=== PATIENT | female | born 1935 | race Caucasian/White ===

== ENCOUNTER 2018-01-05 13:48 | Emergency (ER) | payer OTHER, MEDICARE, BC ==
[~2018-01-05] VITALS: Ht 180.3 cm; Wt 84.5 kg
[~2018-01-05 13:48] MED LIST: BACT2OIN TOP; ESTRPOW15
[2018-01-05 14:11] VITALS: BP 147/87; PULSE 113; RESP 20; TEMP 98.4; O2SAT 94
--- NOTE | 2018-01-05 14:42 | RADRPT ---
EXAM DATE/TIME: 01/05/2018 14:24 [facility] COMPARISON: No previous studies available for comparison. INDICATIONS : Short of breath. Weakness. Mild tachycardia. MEDICAL HISTORY : None. SURGICAL HISTORY : None. ENCOUNTER: Initial ACUITY: 1 day PAIN SCORE: 0/10 LOCATION: Bilateral chest FINDINGS: The heart is enlarged. Mediastinal contours are within normal limits. There is chronic interstitial p rominence and COPD. The examination demonstrates eventration of the diaphragm which I believe is likely on the left versu s a mass posteriorly at the left lung base. I have no previous imaging for direct comparison. If no p revious imaging can be made available CT imaging may be warranted for more definitive characterizatio n. There degenerative changes within the spine but no destructive lesion. CONCLUSION: 1. There is a smoothly marginated, well-circumscribed masslike density posteriorly on the lateral exa m measuring 5.1 x 8.5 cm. Exact etiology of this is uncertain currently see above. 2. Chronic interstitial lung disease and COPD. Osvaldo Javier MD on January 05, 2018 at 14:38 Board Certified Radiologist. This report was verified electronically.
[2018-01-05 15:45] LABS: AUTOMATED NEUTROPHIL # 2.4 TH/MM3 (1.8-7.7); BASOPHIL % 0.8 % (0.0-2.0); EOSINOPHIL # 0.1 TH/MM3 (0-0.4); EOSINOPHIL % 2.3 % (0.0-4.0); HEMATOCRIT 48.1 % (35.0-46.0); HEMOGLOBIN 16.3 GM/DL (11.6-15.3); LYMPH % 37.9 % (9.0-44.0); LYMPHOCYTE # 1.8 TH/MM3 (1.0-4.8); MEAN CELL VOLUME 97.8 FL (80.0-100.0); MEAN CORPUSCULAR HEMOGLOBIN 33.1 PG (27.0-34.0); MEAN CORPUSCULAR HGB CONC 33.9 % (32.0-36.0); MEAN PLATELET VOLUME 9.1 FL (7.0-11.0); MONO % 7.7 % (0.0-8.0); MONOCYTE # 0.4 TH/MM3 (0-0.9); NEUT % 51.3 % (16.0-70.0); PLATELET COUNT 212 TH/MM3 (150-450); RED BLOOD COUNT 4.92 MIL/MM3 (4.00-5.30); RED CELL DISTRIBUTION WIDTH 14.2 % (11.6-17.2); WHITE BLOOD COUNT 4.6 TH/MM3 (4.0-11.0)
[2018-01-05 15:55] LABS: PROTHROMBIN TIME - PATIENT 10.5 SEC (9.8-11.6)
[2018-01-05 15:58] LABS: BILIRUBIN, URINE NEG (NEG); BLOOD, URINE NEG (NEG); GLUCOSE,URINE NEG (NEG); KETONE, URINE NEG (NEG); MUCUS URINE FEW /lpf (OCC); NITRITE,URINE NEG (NEG); PH, URINE 6.5 (5.0-8.5); SQUAMOUS EPITHELIAL CELL URINE 1 /hpf (0-5); URINE COLOR YELLOW (YELLW/STRAW); URINE LEUKOCYTE ESTERASE NEG (NEG)
--- NOTE | 2018-01-05 16:06 | RADRPT ---
EXAM DATE/TIME: 01/05/2018 15:50 [facility] COMPARISON: No previous studies available for comparison. INDICATIONS : Right sided head pain,dizzy RADIATION DOSE: 35.37 CTDIvol (mGy) MEDICAL HISTORY : Hypertension. SURGICAL HISTORY : None. ENCOUNTER: Initial ACUITY: 3 days PAIN SCALE: 3/10 LOCATION: Right cranial TECHNIQUE: Multiple contiguous axial images were obtained of the head. Using automated exposure control and adj ustment of the mA and/or kV according to patient size, radiation dose was kept as low as reasonably a chievable to obtain optimal diagnostic quality images. DICOM format image data is available electro nically for review and comparison. FINDINGS: There is mild atrophy and moderate patchy and confluent decreased attenuation of the bilateral subcor tical white matter, centrum semiovale and periventricular white matter most characteristic of chronic microvascular ischemic disease. No hemorrhage, mass or infarct. No fractures. CONCLUSION: Atrophy and moderate white matter disease. Rishabh Childs MD on January 05, 2018 at 16:03 Board Certified Radiologist. This report was verified electronically.
[2018-01-05 16:07] LABS: ALBUMIN 3.8 GM/DL (3.4-5.0); AST (GOT) 15 U/L (15-37); BICARBONATE 23.8 MEQ/L (21.0-32.0); BLOOD UREA NITROGEN 15 MG/DL (7-18); CALCIUM 9.4 MG/DL (8.5-10.1); CHLORIDE 104 MEQ/L (98-107); CREATININE 1.21 MG/DL (0.50-1.00); GLOMERULAR FILTRATION RATE 43 ML/MIN (>89); GLUCOSE,RANDOM 110 MG/DL (74-106); SODIUM (NA) 137 MEQ/L (136-145)
[2018-01-05 16:09] LABS: ALT (GPT) 23 U/L (10-53)
[2018-01-05 16:11] LABS: ALKALINE PHOSPHATASE 84 U/L (45-117); TOTAL BILIRUBIN ADULT 0.7 MG/DL (0.2-1.0); TOTAL PROTEIN 8.4 GM/DL (6.4-8.2)
[2018-01-05 16:28] VITALS: BP 147/92; PULSE 103; RESP 15; O2SAT 95
[2018-01-05] MEDS ORDERED: BUTA1CAP PO (16:56)
--- NOTE | 2018-01-05 16:57 | PD ---
HPI Chief Complaint: Headache Time Seen by Provider: 16:20 Travel History International Travel<30 days: No Contact w/Intl Traveler<30days: No Traveled to known affect area: No History of Present Illness HPI The patient is a 82-year-old who complains of headache. The patient notes a headache over the last several days, occasionally located over the frontal aspect of the face as well as the right frontal temporal area. The headache is intermittent, throbbing, and not associated with any nausea, vomiting, or photophobia. The patient denies any history of chronic headaches, previous intracranial hemorrhage, or previous intracranial tumors. The patient went to the CT clinic earlier today and they referred the patient to the emergency department for further evaluation. The patient denies any weakness or numbness of the upper or lower extremities. The patient denies any current nausea, vomiting, diarrhea, abdominal pain, paresthesias, or fever. PFSH Past Medical History Deep Vein Thrombosis: Yes (PE) Hypertension: Yes Influenza Vaccination: Yes Menopausal: Yes Past Surgical History Surgical History: No Previous Surgery Social History Alcohol Use: No Tobacco Use: Yes (1/2 PACK DAILY) Substance Use: No Allergies-Medications (Allergen,Severity, Reaction): Coded Allergies: No Known Allergies (Verified Adverse Reaction, Unknown, 01/05/18) Reported Meds & Prescriptions Reported Meds & Active Scripts Active No Active Prescriptions or Reported Medications Review of Systems Except as stated in HPI: all other systems reviewed are Neg General / Constitutional: No: Fever Eyes: No: Diploplia, Blurred Vision, Photophobia HENT: Positive: Headaches, Congestion, No: Lightheadedness, Neck Pain Cardiovascular: No: Chest Pain or Discomfort Respiratory: No: Shortness of Breath Gastrointestinal: No: Nausea, Vomiting, Abdominal Pain Musculoskeletal: No: Weakness Neurologic: Positive: Headache, No: Dizziness Physical Exam Narrative GENERAL: Awake, alert, pleasant 82-year-old in no acute respiratory distress. Divehi accent. SKIN: Focused skin assessment warm/dry. HEAD: Atraumatic. Normocephalic. EYES: Pupils equal and round. 4 mm bilateral. EOMs are intact. ENT: No nasal bleeding or discharge. Mucous membranes pink and moist. TMs are translucent and EACs are clear. NECK: Trachea midline. No JVD. No meningeal signs. CARDIOVASCULAR: Regular rate and rhythm. No murmur appreciated. RESPIRATORY: No accessory muscle use. Clear to auscultation. Breath sounds equal bilaterally. MUSCULOSKELETAL: No obvious deformities. No clubbing. No cyanosis. No edema. NEUROLOGICAL: Awake and alert. No obvious cranial nerve deficits. Motor grossly within normal limits. Normal speech. Nonfocal. PSYCHIATRIC: Appropriate mood and affect; insight and judgment normal. Data Data Last Documented VS Vital Signs Date Time Temp Pulse Resp B/P (MAP) Pulse Ox O2 Delivery O2 Flow Rate FiO2 01/05/18 16:28 103 15 147/92 (110) 95 Room Air 01/05/18 14:11 98.4 Orders Orders Complete Blood Count With Diff (01/05/18 14:14) Prothrombin Time / Inr (Pt) (01/05/18 14:14) Comprehensive Metabolic Panel (01/05/18 14:14) Act Partial Throm Time (Ptt) (01/05/18 14:14) Urinalysis - C+S If Indicated (01/05/18 14:14) Chest, Pa & Lat (01/05/18 ) Ct Brain W/O Iv Contrast(Rout) (01/05/18 ) Labs Laboratory Tests Test 01/05/18 15:10 White Blood Count 4.6 TH/MM3 Red Blood Count 4.92 MIL/MM3 Hemoglobin 16.3 GM/DL Hematocrit 48.1 % Mean Corpuscular Volume 97.8 FL Mean Corpuscular Hemoglobin 33.1 PG Mean Corpuscular Hemoglobin Concent 33.9 % Red Cell Distribution Width 14.2 % Platelet Count 212 TH/MM3 Mean Platelet Volume 9.1 FL Neutrophils (%) (Auto) 51.3 % Lymphocytes (%) (Auto) 37.9 % Monocytes (%) (Auto) 7.7 % Eosinophils (%) (Auto) 2.3 % Basophils (%) (Auto) 0.8 % Neutrophils # (Auto) 2.4 TH/MM3 Lymphocytes # (Auto) 1.8 TH/MM3 Monocytes # (Auto) 0.4 TH/MM3 Eosinophils # (Auto) 0.1 TH/MM3 Basophils # (Auto) 0.0 TH/MM3 CBC Comment DIFF FINAL Differential Comment Prothrombin Time 10.5 SEC Prothromb Time International Ratio 1.0 RATIO Activated Partial Thromboplast Time 25.7 SEC Urine Color YELLOW Urine Turbidity CLEAR Urine pH 6.5 Urine Specific [place] 1.016 Urine Protein TRACE mg/dL Urine Glucose (UA) NEG mg/dL Urine Ketones NEG mg/dL Urine Occult Blood NEG Urine Nitrite NEG Urine Bilirubin NEG Urine Urobilinogen 2.0 MG/DL Urine Leukocyte Esterase NEG Urine WBC 1 /hpf Urine Squamous Epithelial Cells 1 /hpf Urine Mucus FEW /lpf Microscopic Urinalysis Comment CULT NOT INDICATED Blood Urea Nitrogen 15 MG/DL Creatinine 1.21 MG/DL Random Glucose 110 MG/DL Total Protein 8.4 GM/DL Albumin 3.8 GM/DL Calcium Level 9.4 MG/DL Alkaline Phosphatase 84 U/L Aspartate Amino Transf (AST/SGOT) 15 U/L Alanine Aminotransferase (ALT/SGPT) 23 U/L Total Bilirubin 0.7 MG/DL Sodium Level 137 MEQ/L Potassium Level 4.2 MEQ/L Chloride Level 104 MEQ/L Carbon Dioxide Level 23.8 MEQ/L Anion Gap 9 MEQ/L Estimat Glomerular Filtration Rate 43 ML/MIN MDM Medical Decision Making Medical Screen Exam Complete: Yes Emergency Medical Condition: Yes Medical Record Reviewed: Yes Interpretation(s) Last Impressions Head CT 01/05/18 0000 Signed Impressions: Service Date/Time: Friday, January 05, 2018 15:50 - CONCLUSION: Atrophy and moderate white matter disease. Rishabh Childs MD Chest X-Ray 01/05/18 0000 Signed Impressions: Service Date/Time: Friday, January 05, 2018 14:24 - CONCLUSION: 1. There is a smoothly marginated, well-circumscribed masslike density posteriorly on the lateral exam measuring 5.1 x 8.5 cm. Exact etiology of this is uncertain currently see above. 2. Chronic interstitial lung disease and COPD. Osvaldo Javier MD Laboratory Tests Test 01/05/18 15:10 White Blood Count 4.6 TH/MM3 Red Blood Count 4.92 MIL/MM3 Hemoglobin 16.3 GM/DL Hematocrit 48.1 % Mean Corpuscular Volume 97.8 FL Mean Corpuscular Hemoglobin 33.1 PG Mean Corpuscular Hemoglobin Concent 33.9 % Red Cell Distribution Width 14.2 % Platelet Count 212 TH/MM3 Mean Platelet Volume 9.1 FL Neutrophils (%) (Auto) 51.3 % Lymphocytes (%) (Auto) 37.9 % Monocytes (%) (Auto) 7.7 % Eosinophils (%) (Auto) 2.3 % Basophils (%) (Auto) 0.8 % Neutrophils # (Auto) 2.4 TH/MM3 Lymphocytes # (Auto) 1.8 TH/MM3 Monocytes # (Auto) 0.4 TH/MM3 Eosinophils # (Auto) 0.1 TH/MM3 Basophils # (Auto) 0.0 TH/MM3 CBC Comment DIFF FINAL Differential Comment Prothrombin Time 10.5 SEC Prothromb Time International Ratio 1.0 RATIO Activated Partial Thromboplast Time 25.7 SEC Urine Color YELLOW Urine Turbidity CLEAR Urine pH 6.5 Urine Specific [place] 1.016 Urine Protein TRACE mg/dL Urine Glucose (UA) NEG mg/dL Urine Ketones NEG mg/dL Urine Occult Blood NEG Urine Nitrite NEG Urine Bilirubin NEG Urine Urobilinogen 2.0 MG/DL Urine Leukocyte Esterase NEG Urine WBC 1 /hpf Urine Squamous Epithelial Cells 1 /hpf Urine Mucus FEW /lpf Microscopic Urinalysis Comment CULT NOT INDICATED Blood Urea Nitrogen 15 MG/DL Creatinine 1.21 MG/DL Random Glucose 110 MG/DL Total Protein 8.4 GM/DL Albumin 3.8 GM/DL Calcium Level 9.4 MG/DL Alkaline Phosphatase 84 U/L Aspartate Amino Transf (AST/SGOT) 15 U/L Alanine Aminotransferase (ALT/SGPT) 23 U/L Total Bilirubin 0.7 MG/DL Sodium Level 137 MEQ/L Potassium Level 4.2 MEQ/L Chloride Level 104 MEQ/L Carbon Dioxide Level 23.8 MEQ/L Anion Gap 9 MEQ/L Estimat Glomerular Filtration Rate 43 ML/MIN Differential Diagnosis Differential diagnosis includes tension headache, migraine, intracranial tumor, sinusitis, temporal arteritis. Narrative Course Labs are drawn and sent in triage. CT the brain was obtained, was unremarkable. Chest x-ray was obtained, the patient appears to have an eventrated hernia versus smooth masslike area on the lateral aspect of the lungs. Outpatient follow-up is appropriate. Labs are unremarkable. The patient will be provided a copy of the CT results and lab results at discharge. Fioricet as needed. Follow-up with primary physician. Diagnosis Primary Impression: Cephalgia Qualified Codes: G44.209 - Tension-type headache, unspecified, not intractable Patient Instructions: General Instructions Additional Instructions: Please provide the patient a copy of the CT results, x-ray results, lab results at discharge. [facility] Return if symptoms worsen or progress. Med/Other Pt SpecificInfo: Prescription(s) given Scripts Yotyqrceod-Ukwfmmewbtlcx-Pajhjwyi (Fioricet) 50-300-40 Mg Cap 1 CAP PO Q4H Y for HEADACHE, #12 CAP 0 Refills Prov: Jose Romero MD 01/05/18 Disposition: 01 DISCHARGE HOME Condition: Stable Jose Romero MD Jan 05, 2018 16:56
== END 2018-01-05 17:17 | disposition home or self-care (01) ==
LOC: NEPC 13:48
DX: G44.209 Tension-type headache, unspecified, not intractable (principal); I10 Essential (primary) hypertension; J84.9 Interstitial pulmonary disease, unspecified; J44.9 Chronic obstructive pulmonary disease, unspecified; F17.210 Nicotine dependence, cigarettes, uncomplicated; Z86.711 Personal history of pulmonary embolism
CPT/HCPCS: 70450; 71046; 80053; 81001; 85025; 85610; 85730; 99285

== ENCOUNTER 2018-02-11 00:16 | Emergency (ER) | payer OTHER, MEDICARE, BC ==
[~2018-02-11] VITALS: Ht 177.8 cm; Wt 96.5 kg
[~2018-02-11 00:16] MED LIST changes: -BACT2OIN TOP; +BUTA1CAP PO; -ESTRPOW15
[2018-02-11 00:22] VITALS: BP 184/86; PULSE 97; RESP 18; TEMP 97.5; O2SAT 97
[2018-02-11 00:42] VITALS: BP 162/79; PULSE 113; RESP 20; O2SAT 96
[2018-02-11] MEDS ORDERED: SODIUM CHLORIDE 0.9% FLUSH 10 ML FLUSH IVF PRN (00:45)
--- NOTE | 2018-02-11 00:54 | PD ---
HPI Chief Complaint: Pain: Acute or Chronic Time Seen by Provider: 00:31 Travel History International Travel<30 days: No Contact w/Intl Traveler<30days: No Traveled to known affect area: No History of Present Illness HPI The patient is a 89-year-old female that complains of a stabbing pain in her left breast. She states it is not in her chest. The pain is not pleuritic and has been going on intermittently for the past 36 hours. She has not felt this pain in the last 2 hours. The pain is 0 now but when she feels the pain maximally it is only a 5/10. The patient does have a history of chronic atrial fibrillation. She does not take any anticoagulants for this except aspirin. Apparently, she got dizziness with anticoagulants and they took her off of these. The pain is transient when it comes on and lasts for less than a second 1 it comes on. PFSH Past Medical History Deep Vein Thrombosis: Yes (PE) Hypertension: Yes Menopausal: Yes Social History Alcohol Use: No Tobacco Use: Yes (1/2 PACK DAILY) Substance Use: No Allergies-Medications (Allergen,Severity, Reaction): Coded Allergies: No Known Allergies (Verified Adverse Reaction, Unknown, 01/05/18) Reported Meds & Prescriptions Reported Meds & Active Scripts Active Fioricet (Raqqrazfsd-Xdxwvetsysrsz-Ltlrmbfe) 50-300-40 Mg Cap 1 Cap PO Q4H PRN Review of Systems Except as stated in HPI: all other systems reviewed are Neg Physical Exam Narrative GENERAL: The patient is alert, oriented 3 in no apparent distress. Her vital signs show blood pressure 184/86 initially but repeat is 162/75. The patient is anxious. SKIN: Focused skin assessment warm/dry. HEAD: Atraumatic. Normocephalic. EYES: Pupils equal and round. No scleral icterus. No injection or drainage. ENT: No nasal bleeding or discharge. Mucous membranes pink and moist. NECK: Trachea midline. No JVD. CARDIOVASCULAR: Atrial fibrillation with borderline tachycardia. No murmur appreciated. RESPIRATORY: No accessory muscle use. Clear to auscultation. Breath sounds equal bilaterally. I cannot reproduce the patient's pain by pressing on the chest wall. GASTROINTESTINAL: Abdomen soft, non-tender, nondistended. Hepatic and splenic margins not palpable. MUSCULOSKELETAL: No obvious deformities. No clubbing. No cyanosis. No edema. NEUROLOGICAL: Awake and alert. No obvious cranial nerve deficits. Motor grossly within normal limits. Normal speech. PSYCHIATRIC: Appropriate mood and affect; insight and judgment normal. Breast exam: There is no tenderness, masses, lesions or rash on either breast. I cannot reproduce the patient's pain by pressing on her breast. Data Data Last Documented VS Vital Signs Date Time Temp Pulse Resp B/P (MAP) Pulse Ox O2 Delivery O2 Flow Rate FiO2 02/11/18 00:52 20 02/11/18 00:42 113 162/79 (106) 96 02/11/18 00:42 Room Air 02/11/18 00:22 97.5 Orders Orders Electrocardiogram (02/11/18 00:39) Complete Blood Count With Diff (02/11/18 00:39) Comprehensive Metabolic Panel (02/11/18 00:39) Magnesium (Mg) (02/11/18 00:39) Troponin I (02/11/18 00:39) Ecg Monitoring (02/11/18 00:39) Iv Access Insert/Monitor (02/11/18 00:39) Oximetry (02/11/18 00:39) Oxygen Administration (02/11/18 00:39) Sodium Chloride 0.9% Flush (Ns Flush) (02/11/18 00:45) Chest, Pa & Lat (02/11/18 00:39) Labs Laboratory Tests Test 02/11/18 01:00 White Blood Count 7.1 TH/MM3 Red Blood Count 4.87 MIL/MM3 Hemoglobin 16.3 GM/DL Hematocrit 47.0 % Mean Corpuscular Volume 96.6 FL Mean Corpuscular Hemoglobin 33.4 PG Mean Corpuscular Hemoglobin Concent 34.6 % Red Cell Distribution Width 13.8 % Platelet Count 218 TH/MM3 Mean Platelet Volume 8.1 FL Neutrophils (%) (Auto) 52.9 % Lymphocytes (%) (Auto) 40.7 % Monocytes (%) (Auto) 3.9 % Eosinophils (%) (Auto) 1.8 % Basophils (%) (Auto) 0.7 % Neutrophils # (Auto) 3.8 TH/MM3 Lymphocytes # (Auto) 2.9 TH/MM3 Monocytes # (Auto) 0.3 TH/MM3 Eosinophils # (Auto) 0.1 TH/MM3 Basophils # (Auto) 0.0 TH/MM3 CBC Comment DIFF FINAL Differential Comment Blood Urea Nitrogen 21 MG/DL Creatinine 1.20 MG/DL Random Glucose 166 MG/DL Total Protein 8.3 GM/DL Albumin 3.7 GM/DL Calcium Level 8.8 MG/DL Magnesium Level 2.1 MG/DL Alkaline Phosphatase 84 U/L Aspartate Amino Transf (AST/SGOT) 14 U/L Alanine Aminotransferase (ALT/SGPT) 20 U/L Total Bilirubin 0.3 MG/DL Sodium Level 138 MEQ/L Potassium Level 3.6 MEQ/L Chloride Level 105 MEQ/L Carbon Dioxide Level 28.6 MEQ/L Anion Gap 4 MEQ/L Estimat Glomerular Filtration Rate 43 ML/MIN Troponin I LESS THAN 0.02 NG/ML MDM Medical Decision Making Medical Screen Exam Complete: Yes Emergency Medical Condition: Yes Medical Record Reviewed: Yes Interpretation(s) The PA and lateral chest x-ray shows fibro-emphysematous changes without evidence of an acute infiltrate. 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 The complete metabolic profile shows a BUN of 21, creatinine 1.2, GFR 43 with total protein 8.3 but is otherwise normal. The troponin I is less than 0.02. The CBC is normal except for hemoglobin of 16.3 and hematocrit of 47.0. The EKG shows atrial fibrillation with slight rapid ventricular response of [address] elevation or depression. Differential Diagnosis Breast pain, atypical chest pain, breast mass, breast abscess, chest wall pain, pleuritic pain, acute coronary syndrome-unlikely Narrative Course The patient has atypical chest pain. It may be breast pain but I cannot reproduce it by pressing on the breast. She should take Motrin 400 mg 3 times daily. She should continue to take the aspirin. Diagnosis Primary Impression: Atypical chest pain Additional Instructions: As we discussed, follow-up with your primary care physician next week. Take Motrin, 400 mg 3 times a day for the pain. Take the aspirin 81 mg daily. Disposition: DISCHARGE HOME Condition: Stable Adi Gray MD Feb 11, 2018 00:54
--- NOTE | 2018-02-11 01:04 | RADRPT ---
EXAM DATE/TIME: 02/11/2018 00:46 [facility] COMPARISON: CHEST PA & LAT, January 05, 2018, 14:24. INDICATIONS : Chest pain. MEDICAL HISTORY : Hypertension. SURGICAL HISTORY : None. ENCOUNTER: Initial ACUITY: 1 day PAIN SCORE: 4/10 LOCATION: Bilateral chest FINDINGS: Basilar predominant interstitial opacities are again noted, not significantly changed. No acute pneum onia seen. No pleural effusion or pneumothorax. There is eventration of the right hemidiaphragm. No m ass seen. Heart size stable, upper limits of normal. Lungs are hyperexpanded. 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 Terence Chiu MD on February 11, 2018 at 1:01 Board Certified Radiologist. This report was verified electronically.
[2018-02-11 01:11] LABS: AUTOMATED NEUTROPHIL # 3.8 TH/MM3 (1.8-7.7); BASOPHIL % 0.7 % (0.0-2.0); EOSINOPHIL # 0.1 TH/MM3 (0-0.4); EOSINOPHIL % 1.8 % (0.0-4.0); HEMOGLOBIN 16.3 GM/DL (11.6-15.3); LYMPH % 40.7 % (9.0-44.0); LYMPHOCYTE # 2.9 TH/MM3 (1.0-4.8); MEAN CELL VOLUME 96.6 FL (80.0-100.0); MEAN CORPUSCULAR HEMOGLOBIN 33.4 PG (27.0-34.0); MEAN CORPUSCULAR HGB CONC 34.6 % (32.0-36.0); MEAN PLATELET VOLUME 8.1 FL (7.0-11.0); MONO % 3.9 % (0.0-8.0); MONOCYTE # 0.3 TH/MM3 (0-0.9); NEUT % 52.9 % (16.0-70.0); PLATELET COUNT 218 TH/MM3 (150-450); RED BLOOD COUNT 4.87 MIL/MM3 (4.00-5.30); RED CELL DISTRIBUTION WIDTH 13.8 % (11.6-17.2); WHITE BLOOD COUNT 7.1 TH/MM3 (4.0-11.0)
[2018-02-11 01:19] LABS: CHLORIDE 105 MEQ/L (98-107); SODIUM (NA) 138 MEQ/L (136-145)
[2018-02-11 01:22] LABS: ALBUMIN 3.7 GM/DL (3.4-5.0); BICARBONATE 28.6 MEQ/L (21.0-32.0); CALCIUM 8.8 MG/DL (8.5-10.1)
[2018-02-11 01:23] LABS: BLOOD UREA NITROGEN 21 MG/DL (7-18); GLUCOSE,RANDOM 166 MG/DL (74-106); MAGNESIUM 2.1 MG/DL (1.5-2.5)
[2018-02-11 01:26] LABS: ALT (GPT) 20 U/L (10-53); AST (GOT) 14 U/L (15-37); GLOMERULAR FILTRATION RATE 43 ML/MIN (>89)
[2018-02-11 01:27] LABS: TOTAL BILIRUBIN ADULT 0.3 MG/DL (0.2-1.0); TOTAL PROTEIN 8.3 GM/DL (6.4-8.2)
[2018-02-11 01:29] LABS: ALKALINE PHOSPHATASE 84 U/L (45-117)
[2018-02-11 01:31] LABS: TROPONIN I LESS THAN 0.02 NG/ML (0.02-0.05)
[2018-02-11 03:16] VITALS: BP 179/82
--- NOTE | 2018-02-11 22:23 | EKG ---
Date Performed: 02/11/2018 Time Performed: 00:45:17 PTAGE: 82 years EKG: ATRIAL FIBRILLATION WITH RAPID VENTRICULAR RESPONSE ABNORMAL ECG NO PREVIOUS TRACING DOCTOR: Heidi Tatum Interpretating Date/Time 02/11/2018 22:23:01
== END 2018-02-11 03:19 | disposition home or self-care (01) ==
LOC: PHED 00:16
DX: R07.89 Other chest pain (principal); I48.2 Chronic atrial fibrillation; I10 Essential (primary) hypertension; R94.31 Abnormal electrocardiogram [ECG] [EKG]; Z72.0 Tobacco use; Z79.82 Long term (current) use of aspirin
CPT/HCPCS: 71046; 80053; 83735; 84484; 85025; 93005; 99285